=== PATIENT | female | born 1985 | race Caucasian/White ===

== ENCOUNTER → 2018-12-21 16:38 | Outpatient (CLI) | payer SELFPAY ==
[2018-12-21 09:34] VITALS: BMI 21.3
[2018-12-28 08:24] LABS: HPV APTIMA, High Risk Negative (Negative)
== END ==
PROVIDERS: Referring Provider Nurse Practitioner Women's Health; Visit Provider Nurse Practitioner Women's Health
DX: Z12.4 Encounter for screening for malignant neoplasm of cervix (principal)
CPT/HCPCS: 87624; 88175; G0145

== ENCOUNTER → 2021-04-20 | Outpatient (CLI) | payer SELFPAY ==
[2021-04-24 16:11] LABS: HPV APTIMA, High Risk Negative (Negative)
== END | disposition home or self-care (01) ==
LOC: LABSPEC 16:24
PROVIDERS: Referring Provider Nurse Practitioner Women's Health; Visit Provider Nurse Practitioner Women's Health
DX: Z12.4 Encounter for screening for malignant neoplasm of cervix (principal)
CPT/HCPCS: 87624; 88175; G0145

== ENCOUNTER 2021-05-18 09:51 | Outpatient (CLI) | payer SELFPAY ==
[2021-05-18 10:45] LABS: Vitamin D,25 Hydroxy 22.2 ng/mL
[2021-05-18 10:52] LABS: Cholesterol 185 mg/dL (200); Glucose 82 mg/dL (74-106); High Density Lipoprotein 65 mg/dL; Thyroid Stim Hormone (TSH) 5.08 uIU/mL (0.358-3.74); Triglycerides 104 mg/dL; Very Low Density Lipoprotein 21 mg/dL (5-40)
[2021-05-19 22:06] LABS: Chlamydia By Nucleic Acid AMP Negative (Negative)
[2021-05-20 14:10] LABS: Gonococcus By Nucleic Acid AMP Negative (Negative)
== END 2021-05-18 23:59 | disposition short-term general hospital (02) ==
PROVIDERS: Referring Provider Nurse Practitioner Women's Health; Visit Provider Nurse Practitioner Women's Health
DX: N76.0 Acute vaginitis (principal); Z11.3 Encounter for screening for infections with a predominantly sexual mode of transmission
CPT/HCPCS: 36415; 80061; 82306; 82947; 84443; 87070; 87205; 87491; 87591

== ENCOUNTER → 2022-01-11 | Outpatient (CLI) | payer SELFPAY ==
[2022-01-11 12:43] LABS: Vitamin D,25 Hydroxy 22.3 ng/mL
[2022-01-11 12:55] LABS: Thyroid Stim Hormone (TSH) 4.37 uIU/mL (0.358-3.74)
== END | disposition home or self-care (01) ==
PROVIDERS: PCP Internal Medicine; Referring Provider Internal Medicine; Visit Provider Internal Medicine
DX: R79.89 Other specified abnormal findings of blood chemistry (principal); E55.9 Vitamin D deficiency, unspecified; Z83.49 Family history of other endocrine, nutritional and metabolic diseases
CPT/HCPCS: 36415; 82306; 84443

== ENCOUNTER → 2022-10-04 | Outpatient (CLI) | payer SELFPAY ==
[2022-10-04 12:45] LABS: ALB/GLOB Ratio 1.1 RATIO (0.9-2.4); AST(SGOT) 11 U/L (15-37); Alanine Aminotransfer ALT/SGPT 12 U/L (13-56); Albumin, Serum 3.9 g/dL (3.2-5.0); Alkaline Phosphatase 58 U/L (45-117); Anion Gap 7 (5-15); BUN 19 mg/dL (7-18); BUN/Creat Ratio 27.1 RATIO (10-20); Calcium,Total 8.9 mg/dL (8.5-10.1); Chloride 108 mmol/L (98-107); EST Glomerular Filtration Rate 99 mL/min (>60); Est Glom Filt Rate - Afr Amer 120 mL/min (>60); Globulin 3.5 g/dL (2.2-4.2); Glucose 85 mg/dL (74-106); Potassium 4.2 mmol/L (3.5-5.1); Protein, Total 7.4 g/dL (6.4-8.2); Sodium Level 139 mmol/L (136-145); Thyroid Stim Hormone (TSH) 3.92 uIU/mL (0.358-3.74)
[2022-10-04 13:38] LABS: Vitamin D,25 Hydroxy 24.9 ng/mL
== END | disposition home or self-care (01) ==
LOC: BIMLAB 08:57
PROVIDERS: PCP Internal Medicine; Referring Provider Internal Medicine; Visit Provider Internal Medicine
DX: E03.9 Hypothyroidism, unspecified (principal); R79.89 Other specified abnormal findings of blood chemistry; E55.9 Vitamin D deficiency, unspecified
CPT/HCPCS: 36415; 80053; 82306; 84443

== ENCOUNTER → 2023-10-03 | Outpatient (CLI) | payer OTHER, SELFPAY ==
[2023-10-03 12:45] LABS: Absolute Lymphocyte Count 1.39 X10^3/uL (0.83-4.51); Absolute Neutrophil Count 3.1 X10^3/uL (2.0-7.7); Basophil# 0.04 X10^3/uL; Basophil% 0.8 % (0-1); Eosinophil# 0.04 X10^3/uL; Eosinophils% 0.8 % (0-5); Hematocrit 31.6 % (37-47); Hemoglobin 9.1 g/dL (12.0-15.0); Lymphocyte # 1.39 X10^3/ul (0.83-4.51); Mean Corp Hgb Conc 28.8 g/dL (32-36); Mean Corpuscular Hgb 19.4 pg (27.0-32.0); Mean Corpuscular Volume 67.4 fL (81-99); Monocyte# 0.39 X10^3/uL; Monocyte% 7.8 % (0-10); NRBC Flagged by Analyzer 0 % (0-5); Neutrophil % 62.4 % (47-70); Platelet Count 177 K/mm3 (150-450); RBC Distribution Width CV 19.2 % (11.6-14.6); RBC Distribution Width SD 45.4 fl (35.1-43.9); Red Blood Count 4.69 M/mm3 (4.2-5.4)
[2023-10-03 13:07] LABS: Vitamin D,25 Hydroxy 25.6 ng/mL
[2023-10-03 13:18] LABS: ALB/GLOB Ratio 1.1 RATIO (0.9-2.4); AST(SGOT) 13 U/L (15-37); Alanine Aminotransfer ALT/SGPT 14 U/L (13-56); Albumin, Serum 4.1 g/dL (3.2-5.0); Alkaline Phosphatase 51 U/L (45-117); Anion Gap 7 (5-15); BUN 14 mg/dL (7-18); BUN/Creat Ratio 18.6 RATIO (10-20); Calcium,Total 9.2 mg/dL (8.5-10.1); Chloride 108 mmol/L (98-107); Creatinine, Serum 0.75 mg/dL (0.55-1.02); EST Glomerular Filtration Rate 91 mL/min (>60); Est Glom Filt Rate - Afr Amer 110 mL/min (>60); Globulin 3.6 g/dL (2.2-4.2); Glucose 93 mg/dL (74-106); Potassium 4.1 mmol/L (3.5-5.1); Protein, Total 7.7 g/dL (6.4-8.2); Sodium Level 138 mmol/L (136-145); Thyroid Stim Hormone (TSH) 2.23 uIU/mL (0.358-3.74)
[2023-10-03 14:06] LABS: Differential Indicated SCAN CRITERIA MET; Platelet Morphology LARGE
[2023-10-04 09:03] LABS: Ferritin 3 ng/mL (8-252); Iron 24 ug/dL (50-170); Iron Binding Capacity,Total 535 ug/dL (250-450); PERCENT IRON SATURATION 4.5 % (15.0-55.0)
== END | disposition home or self-care (01) ==
LOC: BIMLAB 10:33
PROVIDERS: PCP Internal Medicine; Referring Provider Internal Medicine; Visit Provider Internal Medicine
DX: D50.9 Iron deficiency anemia, unspecified (principal); E55.9 Vitamin D deficiency, unspecified; R42 Dizziness and giddiness; E03.9 Hypothyroidism, unspecified
CPT/HCPCS: 36415; 80053; 82306; 82728; 83540; 83550; 84443; 85025

== ENCOUNTER → 2024-11-06 | Outpatient (CLI) | payer OTHER, SELFPAY ==
[2024-11-06 15:57] LABS: Absolute Neutrophil Count 2.8 X10^3/uL (2.0-7.7); Basophil# 0.02 X10^3/uL; Basophil% 0.4 % (0-1); Eosinophil# 0.04 X10^3/uL; Eosinophils% 0.9 % (0-5); Hematocrit 30.9 % (37-47); Lymphocyte % 28.5 % (19-41); Mean Corp Hgb Conc 29.1 g/dL (32-36); Mean Corpuscular Hgb 19.4 pg (27.0-32.0); Mean Corpuscular Volume 66.7 fL (81-99); Monocyte# 0.44 X10^3/uL; Monocyte% 9.6 % (0-10); NRBC Flagged by Analyzer 0 % (0-5); Neutrophil # 2.75 X10^3/uL (2.7-7.7); Neutrophil % 60.4 % (47-70); Platelet Count 187 K/mm3 (150-450); RBC Distribution Width CV 19.7 % (11.6-14.6); Red Blood Count 4.63 M/mm3 (4.2-5.4); White Blood Count 4.6 K/mm3 (4.4-11.0)
[2024-11-06 16:22] LABS: ALB/GLOB Ratio 1.6 RATIO (0.9-2.4); AST(SGOT) 19 U/L (<=31); Alanine Aminotransfer ALT/SGPT 7 U/L (<=34); Albumin, Serum 4.6 g/dL (3.5-5.0); Alkaline Phosphatase 51 U/L (35-104); Anion Gap 13 (5-15); BUN 13 mg/dL (4-19); BUN/Creat Ratio 17.7 RATIO (10-20); Calcium,Total 9.8 mg/dL (7.6-11.0); Carbon Dioxide 21.6 mmol/L (21.0-32.0); Chloride 104 mmol/L (98-108); Creatinine, Serum 0.74 mg/dL (0.70-1.20); EST Glomerular Filtration Rate 105 (>60); Globulin 2.8 g/dL (2.2-4.2); Glucose 79 mg/dL (70-99); Protein, Total 7.4 g/dL (5.9-8.4); Sodium Level 139 mmol/L (133-145); Total Bilirubin 0.33 mg/dL (0.00-1.30)
[2024-11-06 17:53] LABS: Cholesterol 166 mg/dL (<=200); High Density Lipoprotein 69 mg/dL; Low Density Lipoprotein Calc. 86 mg/dL; Triglycerides 54 mg/dL; Very Low Density Lipoprotein 11 mg/dL (5-40); cholesterol:hdl ratio screen 2.41
[2024-11-06 18:00] LABS: Vitamin D,25 Hydroxy 23.2 ng/mL (30-100)
[2024-11-08 11:36] LABS: Ferritin 5 ng/mL (22-378); Iron 14 ug/dL (50-170); Iron Binding Capacity,Unsat 475 ug/dL (228-428)
[2024-11-08 11:51] LABS: Iron Binding Capacity,Total 489 ug/dL (250-450); PERCENT IRON SATURATION 2.9 % (13-59)
== END | disposition home or self-care (01) ==
LOC: BIMLAB 11:43
PROVIDERS: PCP Internal Medicine; Referring Provider Internal Medicine; Visit Provider Internal Medicine
DX: Z00.00 Encounter for general adult medical examination without abnormal findings (principal); Z13.6 Encounter for screening for cardiovascular disorders; D64.9 Anemia, unspecified; E03.9 Hypothyroidism, unspecified; E55.9 Vitamin D deficiency, unspecified
CPT/HCPCS: 36415; 80053; 80061; 82306; 82728; 83540; 83550; 84443; 85025